=== PATIENT | female | born 1955 | race Caucasian/White ===

== ENCOUNTER → 2020-05-12 09:17 | Outpatient (CLI) | payer MEDICARE, OTHER, SELFPAY ==
--- NOTE | 2020-05-12 09:28 | DI.RAD.S_ITS ---
PROCEDURE: FL SMALL BOWEL FOLLOW THROUGH INDICATIONS: Change in bowel habit,Abdominal distension (gaseou COMPARISON: None. FINDINGS: KUB: Preprocedural grants assistant film demonstrates a normal bowel gas pattern. No suspicious abdominal calcifications. Visualized solid organ contours appear normal. No suspicious bony abnormalities. Mild bilateral hip joint degeneration. Lower lumbar spondylosis. Small bowel: There is normal transit time of barium through the small bowel. Small bowel loops are of normal caliber throughout. Mucosal folds are smooth and of normal thickness. No strictures, intraluminal masses, or extrinsic mass effects are noted. The terminal ileum is identified, and is normal in morphology. IMPRESSION: Normal examination. No evidence of bowel obstruction or delayed contrast transit time. Dictated by: Satish Rogel M.D. on 05/12/2020 at 11:55 Approved by: Satish Rogel M.D. on 05/12/2020 at 11:57
== END ==
PROVIDERS: Referring Provider Physician Assistant Medical; Visit Provider Physician Assistant Medical
DX: R19.4 Change in bowel habit (principal); R14.0 Abdominal distension (gaseous)
CPT/HCPCS: 74250

== ENCOUNTER → 2020-05-29 11:22 | Outpatient (CLI) | payer MEDICARE, OTHER, SELFPAY ==
[2020-05-30 08:55] LABS: COVID19 Sendout Not Detected (Not Detect)
== END ==
PROVIDERS: Visit Provider Physician Assistant
DX: Z01.812 Encounter for preprocedural laboratory examination (principal)
CPT/HCPCS: 87635

== ENCOUNTER 2020-06-01 10:37 | Day surgery (SDC) | payer MEDICARE, OTHER, SELFPAY ==
[2020-06-01] VITALS (8 sets, daily range): BP systolic 110–132; BP diastolic 57–73; PULSE 56–63; RESP 12–14; TEMP 36.1–36.8; O2SAT 93–100; BMI 28.3
--- NOTE | 2020-06-01 | PATH_ITS ---
[facility] Accession Number: [id number] . 01 Material submitted: . PART A: colon - TERMINAL ILEUM PART B: colon - RANDOM COLON . 02 Diagnosis: A. Terminal Ileum, Biopsy: Small bowel mucosa with no diagnostic abnormality. Negative for active inflammation, dysplasia, and malignancy. . B. Random Colon, Biopsy: Colonic mucosa with no diagnostic abnormality. Negative for active, chronic, and microscopic colitis. Negative for dysplasia and malignancy. . MRV 06/03/2020 1045 Local . 02 Electronically signed: . Benji Spivey MD, PhD, Pathologist NPI- [id number] . 01 Gross description: . Part A: TERMINAL ILEUM: Received in formalin are 2 fragment(s) of [place], soft tissue measuring 0.3 x 0.3 x 0.2 cm to 0.3 x 0.2 x 0.2 cm submitted entirely in 1 cassette(s) Part B: RANDOM COLON: Received in formalin are 2 fragment(s) of [place], soft tissue measuring 0.2 x 0.2 x 0.1 cm to 0.2 x 0.1 x 0.1 cm submitted entirely in 1 cassette(s) /QBJ 06/02/2020 0748 Local . 02 Pathologist provided ICD-10: R19.4 . 02 CPT . 224633, [id number] Performed at: 01 [facility] [address] [id number] MD Maxi De Jesus MD Phone: [phone] Performed at: 02 [facility] [place] [address] [place], [place] [id number] MD Karena Phillips MD Phone: [phone]
[2020-06-01] MEDS: SODIUM CHLORIDE 0.9% 1,000 ML 21 ML IV (11:20)
[2020-06-01] MEDS: ONDANSETRON 4 MG/2 ML INJ IV (12:00)
[2020-06-01] MEDS: MIDAZOLAM 5 MG/5 ML VIAL 8 MG IV (12:03)
[2020-06-01] MEDS: fentaNYL 250 MCG/5 ML INJ IV (12:05)
--- NOTE | 2020-06-01 12:46 | PM.OP.ENDO ---
Operative Date/Time/Diagnoses Date of procedure: 06/01/20 Time of procedure: 12:46 Pre-op diagnosis: See indication and findings Procedure & Clinicians Study performed: Colonoscopy with biopsy Indications: Abdominal discomfort, flatulence, history of possible ulcerations in terminal ileum. Rule out Crohn's disease Surgeon: Fernanda Donovan Procedure Notes Procedure in detail: After informed consent was obtained the patient was placed in left lateral decubitus position. Video colonoscope was introduced the rectum slowly advanced to the cecum. Ic valve was identified and intubated. The scope was passed at least 30 cm up above the IC valve.. On slow withdrawal mucosa was carefully examined. Preparation was good. The scope was removed. The patient tolerated the procedure well. Blood loss none Complications none Sedation Total sedation time 17 minutes Versed 8 mg fentanyl 200 mg IV titration Findings 1. Normal terminal ileum to the most distal 30 cm biopsies taken 2. Normal colonoscopy to cecum. Biopsies taken to rule out microscopic colitis Patient will follow up in our office or with [employer] with Dr. Olson Follow-up colonoscopy in 5-10 years
== END 2020-06-01 13:31 | disposition home or self-care (01) ==
PROVIDERS: Referring Provider Internal Medicine Gastroenterology; Visit Provider Internal Medicine Gastroenterology
PROC: 0DJD8ZZ Inspection of Lower Intestinal Tract, Via Natural or Artificial Opening Endoscopic (ICD-10-PCS; CPT 45378; principal; 2020-06-01 11:30)
DX: R10.84 Generalized abdominal pain (principal); R14.0 Abdominal distension (gaseous); R14.1 Gas pain; I10 Essential (primary) hypertension; K21.9 Gastro-esophageal reflux disease without esophagitis; J45.909 Unspecified asthma, uncomplicated; Z86.010 Personal history of colon polyps
CPT/HCPCS: 45380; J2250; J2405; J3010